=== PATIENT | female | born 1940 | race Caucasian/White ===

== ENCOUNTER 2019-08-24 12:36 | Emergency (ER) | payer OTHER, MEDICARE ==
[2019-08-24 13:13] VITALS: BP 137/68; PULSE 93
--- NOTE | 2019-08-24 13:36 | CT ---
[id number] CT/CT Head WO IV EXAM: CT Head WO IV CLINICAL DATA: FALL, STRUCK HEAD. COMPARISON STUDY: 2014. FINDINGS: No intracranial hemorrhage, extra-axial fluid collection, mass, or acute ischemia. Mild changes of chronic small vessel disease throughout the brain. Findings have slightly progressed since the prior examination. No calvarial fracture. Paranasal sinuses and mastoid air cells are clear. IMPRESSION: No acute intracranial findings. Riky Anna MD 08/24/19 [id number] Thank you for allowing us to participate in the care of your patient.
--- NOTE | 2019-08-24 18:41 | EDM.PDOC ---
ED HPI GENERAL MEDICAL PROBLEM - General Chief Complaint: Laceration Time Seen by Provider: 08/24/19 12:45 Source of Information: Reports: Patient History Limitations: Reports: No Limitations - History of Present Illness INITIAL COMMENTS - FREE TEXT/NARRATIVE: Pt. presents to ER with complaints of a fall resulting in a laceration to the R side of her head. Pt. works here in the hospital. She was bending and lost her balance, striking her head on her walker or the wall. She uses a walker to assist with ambulation. Pt. states that she had no LOC post fall. She remembers the entire event. Denies any numbness/tingling in extremities or face. No trouble with speech or ambulation. Pt. denies any neck pain. States that the only painful area is to her L lateral scalp. She is not currently anticoagulated. Onset: Today Onset Date: 08/24/19 Location: Reports: Head Left Posterior Head Pain Score (Numeric/FACES): 3 - Related Data Allergies Allergy/AdvReac Type Severity Reaction Status Date / Time No Known Allergies Allergy Verified 08/24/19 13:07 Home Meds: Home Meds Calcium Carbonate/Vitamin D3 [Calcium 600 + D Tablet] 1 each PO DAILY 03/11/15 [ History] Hydrochlorothiazide 25 mg PO DAILY 03/11/15 [History] Levothyroxine 75 mcg PO ACBREAKFAST 03/11/15 [History] Metoprolol Succinate [Toprol XL] 25 mg PO DAILY 03/11/15 [History] Multivitamin [Tab-A-Ruth] 1 tab PO DAILY 03/11/15 [History] Potassium Chloride [Klor-Con M20] 20 meq PO DAILY 03/11/15 [History] Venlafaxine [Effexor] 75 mg PO BID 03/11/15 [History] Vitamin B Complex [B-100 Complex] 1 each PO DAILY 03/11/15 [History] Cholecalciferol (Vitamin D3) [Vitamin D3] 1 tab PO DAILY 04/15/16 [History] Mirabegron [Myrbetriq] 25 mg PO DAILY 04/15/16 [History] Past Medical History HEENT History: Reports: Cataract, Hard of Hearing, Other (See Below) Other HEENT History: otitis externa, keratoconjunctivitis sicca Cardiovascular History: Reports: Hypertension Gastrointestinal History: Reports: Colon Polyp Genitourinary History: Reports: Urinary Incontinence Musculoskeletal History: Reports: Osteoarthritis Other Musculoskeletal History: rt sciatice w foot drip, Neurological History: Reports: Migraines Other Neuro History: lumbar stenosis, spondyloisthesis of lumbar region, ddd Psychiatric History: Reports: Anxiety, Depression Endocrine/Metabolic History: Reports: Hypothyroidism, Osteopenia Oncologic (Cancer) History: Reports: Breast Dermatologic History: Reports: Urticaria - Past Surgical History HEENT Surgical History: Reports: Cataract Surgery, Eye Surgery, Tonsillectomy Oncologic Surgical History: Reports: Mastectomy Social & Family History - Tobacco Use Smoking Status *Q: Never Smoker - Recreational Drug Use Recreational Drug Use: No ED ROS GENERAL - Review of Systems Review Of Systems: See Below Constitutional: Reports: No Symptoms HEENT: Reports: Other (scalp pain) Respiratory: Reports: No Symptoms Cardiovascular: Reports: No Symptoms Endocrine: Reports: No Symptoms GI/Abdominal: Reports: No Symptoms : Reports: No Symptoms Musculoskeletal: Reports: No Symptoms Skin: Reports: No Symptoms Neurological: Reports: No Symptoms Psychiatric: Reports: No Symptoms Hematologic/Lymphatic: Reports: No Symptoms Immunologic: Reports: No Symptoms ED EXAM, SKIN/RASH Exam: See Below Exam Limited By: No Limitations General Appearance: Alert, WD/WN, No Apparent Distress Eye Exam: Bilateral Eye: EOMI, Normal Fundi, Normal Inspection, PERRL Nose: Normal Inspection, Normal Mucosa, No Blood Head: Other (2 cm well approximated laceration to L parietal scalp. No underlying bony deformity.) Neck: Normal Inspection, Supple, Non-Tender, Full Range of Motion Respiratory/Chest: No Respiratory Distress, Lungs Clear, Normal Breath Sounds, Chest Non-Tender Cardiovascular: Normal Peripheral Pulses, Regular Rate, Rhythm, No Edema, No Gallop, No JVD, No Murmur, No Rub Peripheral Pulses: 4+: Radial (R) Extremities: Normal Inspection, Normal Range of Motion, Non-Tender, No Pedal Edema, Normal Capillary Refill Neurological: Alert, Oriented, CN II-XII Intact, Normal Cognition, Normal Gait, Normal Reflexes, No Motor/Sensory Deficits Psychiatric: Normal Affect, Normal Mood Skin: Warm, Dry, Intact, Normal Color, No Rash, Wound/Incision (L parietal scalp ) Location, Skin: Head ED SKIN PROCEDURES - Laceration/Wound Repair Left Head Appearance: Subcutaneous Skin Prep: Chlorhexidine (Hibiciens), Saline Exploration/Debridement/Repair: Wound Explored Closed with: Stanton Lac/Wound length In cm: 2 # of Sutures: 1 Course - Vital Signs Last Recorded V/S: Last Vital Signs Temp 36.8 C 08/24/19 12:36 Pulse 93 08/24/19 12:36 Resp 16 08/24/19 12:36 BP 137/68 08/24/19 12:36 Pulse Ox 95 08/24/19 12:36 - Radiology Interpretation Free Text/Narrative:: CT brain without contrast was obtained and was negative for acute pathology. Departure - Departure Time of Disposition: 18:45 Disposition: Home, Self-Care 01 Condition: Good Clinical Impression: Laceration, Closed head injury - Discharge Information Instructions: Head Injury, Adult, Laceration Care, Adult Referrals: Viv Grant DO [Primary Care Provider] - Forms: ED Department Discharge Additional Instructions: Return to ER if you have headache, confusion, nausea, or vomiting. I will call you with the results of your CT scan. - Assessment/Plan Plan: Pt. denied any discomfort or other symptoms at discharge. She returned to work without difficulty. Staple out in 10 days. She was given handouts for closed head injury, although she was not exhibiting signs of this. All questions were answered.
== END 2019-08-24 13:42 | disposition home or self-care (01) ==
LOC: VM.ED 12:36
DX: S01.01XA Laceration without foreign body of scalp, initial encounter (principal); S09.90XA Unspecified injury of head, initial encounter; I10 Essential (primary) hypertension; E03.9 Hypothyroidism, unspecified; F32.9 Major depressive disorder, single episode, unspecified; F41.9 Anxiety disorder, unspecified; Z79.890 Hormone replacement therapy; Z79.899 Other long term (current) drug therapy; W01.10XA Fall on same level from slipping, tripping and stumbling with subsequent striking against unspecified object, initial encounter; Y93.9 Activity, unspecified; Y92.239 Unspecified place in hospital as the place of occurrence of the external cause; Y99.0 Civilian activity done for income or pay
CPT/HCPCS: 12001; 70450; 99283-25